=== PATIENT | female | born 1950 | race Caucasian/White ===

== ENCOUNTER → 2024-07-24 11:23 | Outpatient (REF) | payer OTHER, SELFPAY | LOC: WDC 11:23 | PROVIDERS: ATTENDING PHYSICIAN Family Medicine | DX: Z12.31 Encounter for screening mammogram for malignant neoplasm of breast (principal) | CPT/HCPCS: 77063; 77067 ==

== ENCOUNTER 2024-12-11 17:59 | Emergency (ER) | payer OTHER, SELFPAY ==
[2024-12-11 18:18] VITALS: BP 153/115
[2024-12-11 18:47] LABS: % Basophils 0.5 % (0-2); % Eosinophils 0.3 % (0-6); % Immature Granulocytes 0.3 % (0-0.5); % Lymphocytes 12.2 % (20.5-51.1); % Monocytes 8.5 % (1.7-9.3); % Neutrophils 78.2 % (42.2-75.2); Absolute Lymphocytes 0.9 10^3/uL (1.2-3.4); Absolute Monocytes 0.6 10^3/uL (0.1-0.6); Absolute Neutrophils 5.7 10^3/uL (1.4-6.5); Hemoglobin 14.5 g/dL (12.0-16.0); Mean Corp Hgb Conc. 34.5 g/dL (33.0-37.0); Mean Corpuscular Hgb 29.2 pg (27.0-31.0); Mean Corpuscular Volume 84.5 fL (81.0-99.0); Mean Platelet Volume 8.9 fL (7.4-10.4); Nucleated Red Blood Cells % 0 %; Platelet Count 374 10^3/uL (130-400); Red Blood Cell Count 4.97 10^6/uL (4.20-5.40); Red Cell Dist. Width 12.3 % (11.5-14.5); White Blood Cell Count 7.3 10^3/uL (4.8-10.8)
[2024-12-11 18:58] LABS: ALT (SGPT) 18 U/L (0-35); AST (SGOT) 19 U/L (14-36); Albumin 4.1 g/dl (3.5-5.0); Alkaline Phosphatase 78 U/L (38-126); Blood Urea Nitrogen 10 mg/dl (7-17); Calcium 9.4 mg/dl (8.4-10.2); Carbon Dioxide 23 mmol/L (22-30); Chloride 107 mmol/L (98-107); Glucose 135 mg/dl (70-99); Lipase 79 U/L (23-300); Potassium 3.6 mmol/L (3.5-5.1); Sodium 140 mmol/L (135-145); Total Bilirubin 0.6 mg/dl (0.2-1.3); Total Protein 7.2 g/dl (6.3-8.2); eGFR > 60.00
[2024-12-11 19:09] LABS: Troponin I < 0.012 ng/ml
[2024-12-11] MEDS: PROTONIX IV 40 MG IV (19:46)
[2024-12-11] MEDS: NSS 1000 IV (19:46)
[2024-12-11] MEDS: ZOFRAN 4 MG IV (19:46)
[2024-12-11 19:48] VITALS: BP 150/78
--- NOTE | 2024-12-11 19:53 | ED.GENMED ---
History of Present Illness
General
Chief Complaint: Abdominal Symptoms
Time Seen by Provider: 12/11/24 19:06
History of Present Illness
History of Present Illness:
74-year-old female with history of anxiety, depression, GERD, IBS presenting to the emergency department for abdominal discomfort and nausea. Patient reports that last week she was in [place], believed that she pulled a muscle in her left back
after water aerobics. She was incidentally found to have a pulmonary infarct and a PE. She was admitted, treated with heparin drip and discharged on Eliquis. She since came home and notes that she has severe IBS and has been struggling with
eating and drinking. She notes that she has been having nausea, as well as anxiety. She has intermittently been compliant with Eliquis and notes that she is still having some dyspnea. She reports some upper abdominal discomfort. Denies
significant chest pain. Denies fever. Also reports constipation, last bowel movement was 4 days ago, intermittently taking Dulcolax. She has appointment coming up with hematology on Sunday. Denies any additional medical complaints
Past History
Past History
ED Past Medical History: GERD, Hypercholesterolemia, Psychiatric (Bipolar disorder, depression), Other (Reflex sympathetic dystrophy right wrist) and Other (kidney stones )
ED Past Surgical History: Gynecological (Hysterectomy) and Orthopedic (Right wrist surgery)
Social History
Tobacco: Non-smoker
Alcohol: None
Personal:
Living: with family
Employment: Employed
Family History
Family History: Diabetes
Phy Exam
Physical Exam
Physical Exam:
General: Well-appearing, no clinical signs of dehydration, nontoxic and in no acute distress
HEENT: protecting airway
Neck: appears supple
CV: Normal heart rate, regular rhythm
Resp: No accessory muscle use, no increased work of breathing, lungs clear to auscultation bilaterally
Abd: Soft and non-distended, no tenderness to palpation
Extremities: No deformities, no swelling
Neuro: alert, no focal neurologic deficit
: deferred
Rectal: deferred
Psych: Normal affect
Skin: Intact
Course
Orders/Labs/Results
Orders:
Orders
12/11/24 18:24
Electrocardiogram (*1) Urgent
Reason for Study: Shortness of Breath
12/11/24 18:25
EKG- Treatment ONCE
12/11/24 18:39
Complete Blood Count/With Diff Urgent
Comprehensive Metabolic Panel Urgent
Lipase Urgent
Troponin I Urgent
12/11/24 19:40
0.9% Sodium Chloride 1000 ml [Nss] 1,000 ml IV BOLUS
Ondansetron Injectable [Zofran] 4 mg IV NOW STA
Pantoprazole [Protonix IV] 40 mg IV NOW STA
12/11/24 19:41
Apixaban [Eliquis] 10 mg PO ONCE ONE
Abnormal Lab Results
12/11/24
18:39
Absolute Lymphs (auto) 0.9 L 10^3/uL
(1.2-3.4)
Neutrophils % 78.2 H %
(42.2-75.2)
Lymphocytes % 12.2 L %
(20.5-51.1)
Glucose 135 H mg/dl
(70-99)
12/11/24 18:39
12/11/24 18:39
Vital Signs
Initial and Last Documented VS:
Initial Vital Signs
Temp Pulse Resp BP Pulse Ox
98.4 F 118 18 153/115 97
12/11/24 18:18 12/11/24 18:18 12/11/24 18:18 12/11/24 18:18 12/11/24 18:18
Last Documented Vital Signs
Temp Pulse Resp BP Pulse Ox
98.4 F 83 16 150/78 95
12/11/24 18:18 12/11/24 19:48 12/11/24 20:00 12/11/24 19:48 12/11/24 19:48
MDM/Problems Addressed
MDM/Problems Addressed:
74-year-old female with history of anxiety, depression, GERD, IBS presenting to the emergency department for nausea and difficulty tolerating p.o. after recent diagnosis of PE. Vital signs on arrival significant for mild hypertension.
On exam, patient is resting comfortably, no acute distress or discomfort. Patient is very anxious on appearance. Patient question regarding her symptoms, notes that she has been unable to tolerate her Eliquis secondary to nausea. She reports that
she has not been vomiting, however is more of a discomfort. Explained at length the importance of compliance with Eliquis given her recent diagnosis of PE. Patient arrives with paperwork, can CT finding of PE with pulmonary infarct. Patient was
discharged on a starter pack, supposed to take 10 mg twice daily for the first 7 days and 5 mg twice daily every day after. She reports that she has not had any Eliquis today. Patient explains that she feels more anxious than anything and feels
that her anxiety is driving her symptoms. Do suspect component of GERD/peptic ulcer disease, as well as her IBS contributing to constipation. Abdomen is soft and nondistended with no focal tenderness on palpation obstruction or acute pathology.
Will treat patient with IV fluids, pantoprazole and Zofran. Will administer patient's Eliquis today. Otherwise do not feel that patient requires repeat imaging of her chest given her normal vital signs, no hypoxia, no tachycardia. Patient also
had screening laboratory analysis, undetectable troponin, without present concern for right heart strain. Again, will treat patient's symptoms with plan for discharge and supportive therapy.
21:20 -patient is feeling much better, again plan for discharge
*EKG
Interpreted by ED Provider?: Yes
EKG Intrepretation Date: 12/11/24
EKG Intrepretation Time: 19:56
Interpretation: normal
Heart Rate: 95
Rate: normal
Rhythm: sinus
[place]: normal axis
Interval: normal interval
QRS Pattern: normal QRS
Ischemia: no ischemia
*Critical Care Note
Total Time (30-74mins, 75-104mins- exclusive of procedures): Not Applicable
ED Attending Note
-
Portions of this chart may have been created with voice recognition software.� Occasional wrong word or��sound alike� substitutions may have occurred due to the inherent limitations of voice recognition software.
Discharge Plan
Departure
Patient with high blood pressure during this ER visit?: No
Condition: Good
Discharge Problem:
Gastritis
Prescriptions:
No Action
gabapentin 600 MG tablet
1,200 mg PO HS
lithium carbonate 300 MG tablet extended release
300 mg PO HS
lamotrigine 25 MG tablet, chewable dispersible
50 mg PO HS
pravastatin 20 MG tablet
20 mg PO HS
escitalopram oxalate 10 MG tablet
10 mg PO HS
calcium carbonate-vitamin D3 [Oyster Shell Calcium-Vit D3] 500 MG tablet
1 tab PO DAILY
inulin-chromium picolinate [Fiber Gummies (with chromium)] 1 EACH tablet,chewable
3 ea PO DAILY
multivitamin with folic acid [Tab-A-[place]] 1 TABLET tablet
1 tab PO DAILY
hyoscyamine sulfate [Levsin/SL] 0.125 MG tablet, sublingual
0.125 mg sublingual DAILYPRN PRN (Reason: IBS)
lidocaine HCl [Lidocaine Viscous] 90 ML solution
90 ml PO Q6HPRN PRN (Reason: pain ) Qty: 1 0RF
Rx Instructions:
10 ml orally swish and spit every 6 hrs
Referrals:
Barbara Caldwell MD [Family Provider] -
Interventions
Interventions:
*Risk Screen - Suicide Last Done: 12/11/24 18:18
*General Assessment Last Done: 12/11/24 18:18
*Neglect/Abuse Screening Last Done: 12/11/24 18:18
AM-Emjnsy-Freadktwnx Assessment Last Done: 12/11/24 18:41
ED- Cardiac Assessment Last Done: 12/11/24 18:41
ED- Pulmonary Assessment Last Done: 12/11/24 18:41
Discharge Date and Time
Print Language: ROMANIAN
[2024-12-11 20:00] VITALS: BP 166/72
[2024-12-11] MEDS: ELIQUIS 10 MG PO (20:13)
[2024-12-11 21:10] VITALS: BP 153/75
== END 2024-12-11 21:48 | disposition home or self-care (01) ==
LOC: EMR 17:59
PROVIDERS: Emergency Medicine; EMERGENCY PHYSICIAN Student in an Organized Health Care Education/Training Program; FAMILY PHYSICIAN Family Medicine
DX: K29.70 Gastritis, unspecified, without bleeding (principal); F41.9 Anxiety disorder, unspecified; F31.9 Bipolar disorder, unspecified; E78.00 Pure hypercholesterolemia, unspecified; I10 Essential (primary) hypertension; Z79.01 Long term (current) use of anticoagulants; Z83.3 Family history of diabetes mellitus; Z87.442 Personal history of urinary calculi; Z90.710 Acquired absence of both cervix and uterus
CPT/HCPCS: 99283; 96374; 96375; 96361; 80053; 83690; 84484; 85025; 93005

== ENCOUNTER 2024-12-14 12:15 | Emergency (ER) | payer OTHER, SELFPAY ==
[2024-12-14 12:18] VITALS: BP 170/110
[2024-12-14 12:46] LABS: % Basophils 0.8 % (0-2); % Eosinophils 0.3 % (0-6); % Immature Granulocytes 0.3 % (0-0.5); % Lymphocytes 12.2 % (20.5-51.1); % Monocytes 9.1 % (1.7-9.3); % Neutrophils 77.3 % (42.2-75.2); Absolute Basophils 0.1 10^3/uL (0-0.2); Absolute Lymphocytes 0.8 10^3/uL (1.2-3.4); Absolute Monocytes 0.6 10^3/uL (0.1-0.6); Absolute Neutrophils 4.9 10^3/uL (1.4-6.5); Hematocrit 42.5 % (37.0-47.0); Hemoglobin 14.8 g/dL (12.0-16.0); Mean Corp Hgb Conc. 34.8 g/dL (33.0-37.0); Mean Corpuscular Hgb 29.5 pg (27.0-31.0); Mean Corpuscular Volume 84.8 fL (81.0-99.0); Mean Platelet Volume 9.3 fL (7.4-10.4); Nucleated Red Blood Cells % 0 %; Platelet Count 398 10^3/uL (130-400); Red Blood Cell Count 5.01 10^6/uL (4.20-5.40); Red Cell Dist. Width 12.5 % (11.5-14.5); White Blood Cell Count 6.4 10^3/uL (4.8-10.8)
[2024-12-14 12:57] LABS: ALT (SGPT) 19 U/L (0-35); AST (SGOT) 19 U/L (14-36); Alkaline Phosphatase 71 U/L (38-126); Blood Urea Nitrogen 11 mg/dl (7-17); Carbon Dioxide 26 mmol/L (22-30); Chloride 105 mmol/L (98-107); Glucose 166 mg/dl (70-99); Potassium 3.7 mmol/L (3.5-5.1); Sodium 140 mmol/L (135-145); Total Bilirubin 0.5 mg/dl (0.2-1.3); Total Protein 7.1 g/dl (6.3-8.2); eGFR > 60.00
[2024-12-14 13:09] LABS: Troponin I < 0.012 ng/ml
[2024-12-14 13:57] VITALS: BMI 21.9
[2024-12-14 14:00] VITALS: BP 161/90
--- NOTE | 2024-12-14 14:14 | ED.GENMED ---
Addendum entered and electronically signed by Dipak Ramos MD 12/14/24 17:37:
The diagnosis and documentation as such is from the wrong chart.
Patient's discharge diagnosis is upper back pain. Recent pulmonary infarct/pulmonary emboli
Pleuritic upper back pain.
Gastritis
Incidental liver lesion and renal lesion
Medical decision making. CT scans are stable. No acute pulmonary emboli. In no distress. Cardiac testing within normal limits. Discharged to follow-up. Patient was plugged into the GI follow-up issue.
Original Note:
History of Present Illness
General
Chief Complaint: Back Pain
Source: patient and spouse
Exam Limitations: none
Time Seen by Provider: 12/14/24 14:04
History of Present Illness
History of Present Illness:
Patient presents with a recurrence of upper back pain somewhat pleuritic in nature with mild shortness of breath. Diagnosed with a pulmonary emboli/infarct in [place]. Has been on Eliquis. Initially there was compliance issues however has been
faithful the last week or so and has been on double dose. No fever no cough no nausea or vomiting. However has also had ongoing epigastric pain. No bloody stools tarry stools or other complaints
Past History
Past History
ED Past Medical History: GERD, Hypercholesterolemia, Psychiatric (Bipolar disorder, depression), Other (Reflex sympathetic dystrophy right wrist), Other (Pulmonary emboli/symptom) and Other (kidney stones )
ED Past Surgical History: Gynecological (Hysterectomy) and Orthopedic (Right wrist surgery)
Social History
Tobacco: Non-smoker
Alcohol: None
Personal:
Living: with family
Employment: Employed
Family History
Family History: Diabetes
Review of Systems
Review of Systems
All Other Systems: Not applicable
Constitutional: Denies fever
Respiratory: Denies hemoptysis
ABD/GI: Denies bloody stools or black stools
Phy Exam
Physical Exam
Physical Exam:
GENERAL: Alert and oriented in no apparent distress
EYE: Orbits normal.
NECK: Supple, no significant adenopathy.
ENT: Pharynx without erythema
CARDIAC: Regular rate and rhythm without any obvious murmurs.
LUNGS: Clear breath sounds,normal
ABDOMEN: Soft, bowel sounds present. Minimal epigastric tenderness. No rebound or guarding no mass or hernia.
NEUROLOGICAL: Alert and oriented , grossly non-focal
SKIN: Warm and dry, no rash or lesion, no discoloration, skin intact.
MUSCULOSKELETAL: No edema,no deformity.Good color
PSYCH: Normal and appropriate interaction.
Course
Orders/Labs/Results
Orders:
Orders
12/14/24 12:23
Electrocardiogram (*1) Urgent
Reason for Study: Chest Pain
EKG- Treatment ONCE
12/14/24 12:32
Complete Blood Count/With Diff Urgent
Comprehensive Metabolic Panel Urgent
Troponin I Urgent
12/14/24 14:15
CT Chest PE Study Urgent
Comment:
Reason For Exam: Known PE. Increased left upper back pain.
12/14/24 14:16
Add On- LAB Urgent
Tests Added?: lipase
CT Abd/Pel (IV only)-DH only Urgent
Comment:
Reason For Exam: Ongoing progressive epigastric pain
Abnormal Lab Results
12/14/24
12:32
Absolute Lymphs (auto) 0.8 L 10^3/uL
(1.2-3.4)
Neutrophils % 77.3 H %
(42.2-75.2)
Lymphocytes % 12.2 L %
(20.5-51.1)
Glucose 166 H mg/dl
(70-99)
12/14/24 12:32
12/14/24 12:32
Vital Signs
Initial and Last Documented VS:
Initial Vital Signs
Temp Pulse Resp BP Pulse Ox
97.8 F 120 18 170/110 97
12/14/24 12:18 12/14/24 12:18 12/14/24 12:18 12/14/24 12:18 12/14/24 12:18
Last Documented Vital Signs
Temp Pulse Resp BP Pulse Ox
97.8 F 85 17 161/90 96
12/14/24 12:18 12/14/24 14:00 12/14/24 14:00 12/14/24 14:00 12/14/24 14:00
MDM/Problems Addressed
Differential Diagnosis Includes:
Patient complaining of 2 issues recurrence of upper back pain at the same location and symptomatic complex consistent with her recent PE/pulmonary infarct. May be all post infarct pleurisy however need to reevaluate CT scan for any changes. As for
the epigastric convinced this is directly related. Clinically seems to be a gastritis ulcer issue. She clinically has a nonsurgical abdomen. We will scan her abdomen and pelvis also. LFTs are normal. Lipase added.
*Radiology
Radiology exam reviewed: radiology read reviewed (Negative CT for acute changes)
*Pulse Oximetry
Patient hypoxic: no
*EKG
Interpreted by ED Provider?: Yes
Interpretation: normal
Comparison EKG: no changes
Heart Rate: 94
Rate: normal
Rhythm: sinus
[place]: normal axis
Interval: normal interval
QRS Pattern: normal QRS
Ischemia: no ischemia
*Critical Care Note
Total Time (30-74mins, 75-104mins- exclusive of procedures): Not Applicable
Data Reviewed
Review of Other/Old Records Reveals: Labs, Records, Radiology Studies and Testing
ED Attending Note
-
Portions of this chart may have been created with voice recognition software.� Occasional wrong word or��sound alike� substitutions may have occurred due to the inherent limitations of voice recognition software.
Discharge Plan
Departure
Patient Disposition: Home (Routine Discharge)
Date of Disposition: 12/14/24
Time of Disposition: 14:21
Patient with high blood pressure during this ER visit?: Yes
Discharge Problem:
Head injury/anticoagulated, posterior ear laceration
Instructions: Minor Head Injury, Adult ED, Laceration Repair With Glue ED, BLOOD PRESSURE
Prescriptions:
No Action
gabapentin 600 MG tablet
1,200 mg PO HS
lithium carbonate 300 MG tablet extended release
300 mg PO HS
lamotrigine 25 MG tablet, chewable dispersible
50 mg PO HS
pravastatin 20 MG tablet
20 mg PO HS
escitalopram oxalate 10 MG tablet
10 mg PO HS
calcium carbonate-vitamin D3 [Oyster Shell Calcium-Vit D3] 500 MG tablet
1 tab PO DAILY
inulin-chromium picolinate [Fiber Gummies (with chromium)] 1 EACH tablet,chewable
3 ea PO DAILY
multivitamin with folic acid [Tab-A-[place]] 1 TABLET tablet
1 tab PO DAILY
hyoscyamine sulfate [Levsin/SL] 0.125 MG tablet, sublingual
0.125 mg sublingual DAILYPRN PRN (Reason: IBS)
lidocaine HCl [Lidocaine Viscous] 90 ML solution
90 ml PO Q6HPRN PRN (Reason: pain ) Qty: 1 0RF
Rx Instructions:
10 ml orally swish and spit every 6 hrs
ondansetron 4 mg Tablet,Disintegrating
4 mg PO TIDPRN PRN (Reason: nausea/vomiting) Qty: 9 0RF
alum-mag hydroxide-simeth [Maalox Advanced] 200-200-20 mg/5 mL suspension
5 ml PO ONCE PRN (Reason: constipation) Qty: 3000 0RF
Referrals:
UNKNOWN - PT DOES,NOT KNOW [Family Provider] - Follow up in 2-3 days
Interventions
Interventions:
*Risk Screen - Suicide Last Done: 12/14/24 12:18
*General Assessment Last Done: 12/14/24 12:18
*ED- Fall Risk Assessment Last Done: 12/14/24 13:59
*ED COVID-19 Vaccine History Last Done: 12/14/24 12:18
ED-Musculoskeletal Assessment Last Done: 12/14/24 13:59
Discharge Date and Time
Print Language: SERBIAN
[2024-12-14 15:12] VITALS: BP 165/74
[2024-12-14 15:24] LABS: Lipase 172 U/L (23-300)
[2024-12-14 16:00] VITALS: BP 161/79
--- NOTE | 2024-12-14 16:36 | ED.GENMED ---
History of Present Illness
General
Chief Complaint: Back Pain
Time Seen by Provider: 12/14/24 14:04
Past History
Past History
ED Past Medical History: GERD, Hypercholesterolemia, Psychiatric (Bipolar disorder, depression), Other (Reflex sympathetic dystrophy right wrist), Other (Pulmonary emboli/symptom) and Other (kidney stones )
ED Past Surgical History: Gynecological (Hysterectomy) and Orthopedic (Right wrist surgery)
Social History
Tobacco: Non-smoker
Alcohol: None
Personal:
Living: with family
Employment: Employed
Family History
Family History: Diabetes
Course
Orders/Labs/Results
Orders:
Orders
12/14/24 12:23
Electrocardiogram (*1) Urgent
Reason for Study: Chest Pain
EKG- Treatment ONCE
12/14/24 12:32
Complete Blood Count/With Diff Urgent
Comprehensive Metabolic Panel Urgent
Lipase Urgent
Comment: ADD ON
Troponin I Urgent
12/14/24 14:15
CT Chest PE Study Urgent
Comment:
Reason For Exam: Known PE. Increased left upper back pain.
12/14/24 14:16
Add On- LAB Urgent
Tests Added?: lipase
CT Abd/Pel (IV only)-DH only Urgent
Comment:
Reason For Exam: Ongoing progressive epigastric pain
Abnormal Lab Results
12/14/24
12:32
Absolute Lymphs (auto) 0.8 L 10^3/uL
(1.2-3.4)
Neutrophils % 77.3 H %
(42.2-75.2)
Lymphocytes % 12.2 L %
(20.5-51.1)
Glucose 166 H mg/dl
(70-99)
12/14/24 12:32
12/14/24 12:32
Vital Signs
Initial and Last Documented VS:
Initial Vital Signs
Temp Pulse Resp BP Pulse Ox
97.8 F 120 18 170/110 97
12/14/24 12:18 12/14/24 12:18 12/14/24 12:18 12/14/24 12:18 12/14/24 12:18
Last Documented Vital Signs
Temp Pulse Resp BP Pulse Ox
97.8 F 78 18 165/74 97
12/14/24 12:18 12/14/24 15:15 12/14/24 15:15 12/14/24 15:12 12/14/24 15:15
*Radiology
Radiology exam reviewed: radiology read reviewed (No acute findings. Liver lesion. Infiltrate left base. Likely pulmonary infarct)
*EKG
Interpreted by ED Provider?: Yes
Interpretation: normal
Comparison EKG: no changes
Heart Rate: 94
Rate: normal
Rhythm: sinus
[place]: normal axis
Interval: normal interval
QRS Pattern: normal QRS
Ischemia: no ischemia
Update Note
Update Note:
Copy of CT report given to patient for follow-up. No pulmonary emboli currently. Clinical not cardiac. There is an infiltrate that has been ongoing in the left base. Likely infarct. Not describing any infectious symptoms no fever cough sputum.
And this has been stable there for 3 weeks. Will also follow-up the MRI. GI follow-up for her gastritis like symptoms
ED Attending Note
-
Portions of this chart may have been created with voice recognition software.� Occasional wrong word or��sound alike� substitutions may have occurred due to the inherent limitations of voice recognition software.
Discharge Plan
Departure
Patient Disposition: Home (Routine Discharge)
Date of Disposition: 12/14/24
Time of Disposition: 16:40
Patient with high blood pressure during this ER visit?: Yes
Discharge Problem:
Right upper back pain, Possible post infarct pleurisy, Gastritis, Liver lesion, Small renal lesion
Instructions: Upper Back Pain (DC), Gastritis - Discharge instructions, BLOOD PRESSURE
Prescriptions:
No Action
gabapentin 600 MG tablet
1,200 mg PO HS
lithium carbonate 300 MG tablet extended release
300 mg PO HS
lamotrigine 25 MG tablet, chewable dispersible
50 mg PO HS
pravastatin 20 MG tablet
20 mg PO HS
escitalopram oxalate 10 MG tablet
10 mg PO HS
calcium carbonate-vitamin D3 [Oyster Shell Calcium-Vit D3] 500 MG tablet
1 tab PO DAILY
inulin-chromium picolinate [Fiber Gummies (with chromium)] 1 EACH tablet,chewable
3 ea PO DAILY
multivitamin with folic acid [Tab-A-[place]] 1 TABLET tablet
1 tab PO DAILY
hyoscyamine sulfate [Levsin/SL] 0.125 MG tablet, sublingual
0.125 mg sublingual DAILYPRN PRN (Reason: IBS)
lidocaine HCl [Lidocaine Viscous] 90 ML solution
90 ml PO Q6HPRN PRN (Reason: pain ) Qty: 1 0RF
Rx Instructions:
10 ml orally swish and spit every 6 hrs
ondansetron 4 mg Tablet,Disintegrating
4 mg PO TIDPRN PRN (Reason: nausea/vomiting) Qty: 9 0RF
alum-mag hydroxide-simeth [Maalox Advanced] 200-200-20 mg/5 mL suspension
5 ml PO ONCE PRN (Reason: constipation) Qty: 3000 0RF
Referrals:
UNKNOWN - PT DOES,NOT KNOW [Family Provider] - Follow up in 2-3 days
Coni Coleman, DO [Active] -
Activity Restrictions/Additional Instructions:
Follow-up with oncology
Tylenol only for pain since you are on the blood thinners
Take a Pepcid a day
The gastrointestinal group should call you tomorrow morning
Return with any infectious symptoms fever cough shortness of breath etc.
Make sure you get a follow-up MRI of your liver and to consider follow-up ultrasound of your kidney at some point in the future
Interventions
Interventions:
*Risk Screen - Suicide Last Done: 12/14/24 12:18
*General Assessment Last Done: 12/14/24 12:18
*Neglect/Abuse Screening Last Done: 12/14/24 15:22
*ED- Fall Risk Assessment Last Done: 12/14/24 13:59
*ED COVID-19 Vaccine History Last Done: 12/14/24 12:18
ED-Musculoskeletal Assessment Last Done: 12/14/24 13:59
Discharge Date and Time
Print Language: [place]IZ[place]
[2024-12-14 17:00] VITALS: BP 163/78
== END 2024-12-14 17:20 | disposition home or self-care (01) ==
LOC: EMR 12:15
PROVIDERS: Emergency Medicine; EMERGENCY PHYSICIAN Emergency Medicine
DX: M54.89 Other dorsalgia (principal); K29.70 Gastritis, unspecified, without bleeding; K76.9 Liver disease, unspecified; N28.9 Disorder of kidney and ureter, unspecified; R06.02 Shortness of breath; E78.00 Pure hypercholesterolemia, unspecified; Z86.711 Personal history of pulmonary embolism; Z79.01 Long term (current) use of anticoagulants
CPT/HCPCS: 99284; 71275; 74177; 80053; 83690; 84484; 85025; 93005; Q9967

== ENCOUNTER → 2024-12-22 09:21 | Outpatient (REF) | payer OTHER, SELFPAY | LOC: RAD 09:21 | PROVIDERS: ATTENDING PHYSICIAN Internal Medicine Gastroenterology; FAMILY PHYSICIAN Family Medicine | DX: R10.13 Epigastric pain (principal) | CPT/HCPCS: 74018 ==

== ENCOUNTER → 2024-12-23 08:49 | Outpatient (REF) | payer OTHER, SELFPAY | LOC: HWRAD 08:49 | PROVIDERS: ATTENDING PHYSICIAN Internal Medicine Gastroenterology; FAMILY PHYSICIAN Family Medicine; REFERRING PHYSICIAN Internal Medicine Hematology & Oncology | DX: R10.13 Epigastric pain (principal) | CPT/HCPCS: 76700 ==

== ENCOUNTER 2025-01-03 03:10 | Emergency (ER) | payer OTHER, SELFPAY ==
[2025-01-03 03:20] VITALS: BP 152/101
[2025-01-03 03:21] VITALS: BP 152/101
[2025-01-03] MEDS: ZOFRAN 4 MG IV (03:41)
[2025-01-03 03:42] LABS: % Basophils 0.4 % (0-2); % Eosinophils 1.2 % (0-6); % Immature Granulocytes 0.3 % (0-0.5); % Lymphocytes 14.5 % (20.5-51.1); % Monocytes 4.5 % (1.7-9.3); % Neutrophils 79.1 % (42.2-75.2); Absolute Eosinophils 0.1 10^3/uL (0-0.7); Absolute Lymphocytes 1.6 10^3/uL (1.2-3.4); Absolute Monocytes 0.5 10^3/uL (0.1-0.6); Absolute Neutrophils 8.6 10^3/uL (1.4-6.5); Hematocrit 51.6 % (37.0-47.0); Mean Corp Hgb Conc. 32.9 g/dL (33.0-37.0); Mean Corpuscular Hgb 29.2 pg (27.0-31.0); Mean Corpuscular Volume 88.7 fL (81.0-99.0); Mean Platelet Volume 9.5 fL (7.4-10.4); Nucleated Red Blood Cells % 0 %; Platelet Count 285 10^3/uL (130-400); Red Blood Cell Count 5.82 10^6/uL (4.20-5.40); Red Cell Dist. Width 13.2 % (11.5-14.5); White Blood Cell Count 10.9 10^3/uL (4.8-10.8)
[2025-01-03 03:54] LABS: ALT (SGPT) 18 U/L (0-35); AST (SGOT) 18 U/L (14-36); Albumin 4.2 g/dl (3.5-5.0); Alkaline Phosphatase 64 U/L (38-126); Blood Urea Nitrogen 12 mg/dl (7-17); Calcium 9.9 mg/dl (8.4-10.2); Carbon Dioxide 22 mmol/L (22-30); Chloride 111 mmol/L (98-107); Estimated Creatinine Clearance 67 ml/min; Glucose 198 mg/dl (70-99); Lipase 247 U/L (23-300); Potassium 3.9 mmol/L (3.5-5.1); Sodium 141 mmol/L (135-145); Total Bilirubin 0.6 mg/dl (0.2-1.3); eGFR > 60.00
--- NOTE | 2025-01-03 04:00 | ED.GENMED ---
History of Present Illness
General
Chief Complaint: Abdominal Symptoms
Source: patient and spouse
Time Seen by Provider: 01/03/25 03:36
History of Present Illness
History of Present Illness:
74-year-old female presents with lower abdominal pain that started yesterday. She was at home and was on the floor with severe pain and decided to come in for evaluation. She has a history of irritable bowel syndrome. States she did feel coming
on yesterday to a mild degree. She tried taking her medications but symptoms worsened through the night. On arrival however she did have a bowel movement states she feels more than 90% better. She states she feels stupid for coming in as she does
feel much improved. She did take a very small dose of MiraLAX at home. No melena or hematochezia. States she has had this several times in the past.
Past History
Past History
ED Past Medical History: GERD, Hypercholesterolemia, Psychiatric (Bipolar disorder, depression), Other (Reflex sympathetic dystrophy right wrist, irritable bowel syndrome, optical migraines) and Other (kidney stones )
ED Past Surgical History: Gynecological (Hysterectomy) and Orthopedic (Right wrist surgery)
Social History
Tobacco: Non-smoker
Alcohol: None
Personal:
Living: with family
Employment: Employed
Family History
Family History: Diabetes
Phy Exam
Physical Exam
Physical Exam:
CONSTITUTIONAL Patient alert and oriented to person, place and time. Well-appearing. Vital signs reviewed.
HEAD atraumatic, normocephalic.
EYES eyelids normal to inspection, Extraocular muscles intact, Conjunctiva normal, Sclera normal.
NECK normal range of motion, Trachea midline, no jugular venous distention.
RESPIRATORY CHEST No respiratory distress noted, Chest expansion equal
ABDOMEN abdomen nontender, Bowel sounds normal. No distention. Mild tenderness in the lower abdomen
BACK normal inspection, no obvious deformities
UPPER EXTREMITY range of motion normal, Motor strength normal, no cyanosis, no edema.
LOWER EXTREMITY range of motion normal, Motor strength normal, no cyanosis, no edema.
NEURO Speech normal, No focal motor deficits, Yesenia coma scale 15, Memory normal, Cranial Nerves intact to screening exam.
SKIN skin warm, dry, and normal in color.
Course
Orders/Labs/Results
Orders:
Orders
01/03/25 03:14
Electrocardiogram (*1) Urgent
Reason for Study: Abdominal Pain
IV Insert/Care/Rem.- Treatment PRN
Urinalysis Reflex To Culture Urgent
Date Specimen was Collected: 01/03/25
Time Specimen was Collected: 03:14
01/03/25 03:35
Complete Blood Count/With Diff Urgent
Comprehensive Metabolic Panel Urgent
Lipase Urgent
01/03/25 03:38
Ondansetron Injectable [Zofran] 4 mg .ROUTE .STK-MED ONE
01/03/25 03:41
Ondansetron Injectable [Zofran] 4 mg IV NOW STA
Abnormal Lab Results
01/03/25
03:35
WBC 10.9 H 10^3/uL
(4.8-10.8)
RBC 5.82 H 10^6/uL
(4.20-5.40)
Hgb 17.0 H g/dL
(12.0-16.0)
Hct 51.6 H %
(37.0-47.0)
MCHC 32.9 L g/dL
(33.0-37.0)
Absolute Neuts (auto) 8.6 H 10^3/uL
(1.4-6.5)
Neutrophils % 79.1 H %
(42.2-75.2)
Lymphocytes % 14.5 L %
(20.5-51.1)
Chloride 111 H mmol/L
(98-107)
Glucose 198 H mg/dl
(70-99)
01/03/25 03:35
01/03/25 03:35
Vital Signs
Initial and Last Documented VS:
Initial Vital Signs
Pulse Resp
120 19
01/03/25 03:19 01/03/25 03:19
Last Documented Vital Signs
Temp Pulse Resp BP Pulse Ox
97.5 F 107 20 124/94 98
01/03/25 03:20 01/03/25 04:15 01/03/25 04:15 01/03/25 04:15 01/03/25 04:44
MDM/Problems Addressed
Differential Diagnosis Includes:
Constipation, colitis, stercoral colitis, diverticulitis, AAA, irritable bowel syndrome
MDM/Problems Addressed:
Irritable bowel syndrome, constipation
*Pulse Oximetry
Patient hypoxic: no
*Critical Care Note
Total Time (30-74mins, 75-104mins- exclusive of procedures): Not Applicable
Data Reviewed
Source: patient and spouse (Spouse states she has been taking her Eliquis and Levsin)
Further Testing Considered But Not Given:
Consider CT but patient feels much improved
Patient Management
Escalation/DeEscalation of care consider admission/obs:
Patient appears well and feels much improved. States she wants to go home and feels stupid for coming. I think this is reasonable. Labs grossly reassuring.
ED Attending Note
-
Portions of this chart may have been created with voice recognition software.� Occasional wrong word or��sound alike� substitutions may have occurred due to the inherent limitations of voice recognition software.
Discharge Plan
Departure
Patient Disposition: Home (Routine Discharge)
Date of Disposition: 01/03/25
Time of Disposition: 04:00
Patient with high blood pressure during this ER visit?: Yes
Discharge Problem:
Abdominal pain, Irritable bowel syndrome
Instructions: Abdominal Pain, BLOOD PRESSURE
Prescriptions:
No Action
lithium carbonate 300 MG tablet extended release
300 mg PO HS
multivitamin with folic acid [Tab-A-[place]] 1 TABLET tablet
1 tab PO DAILY
hyoscyamine sulfate [Levsin/SL] 0.125 MG tablet, sublingual
0.125 mg sublingual DAILYPRN PRN (Reason: IBS)
ondansetron 4 mg Tablet,Disintegrating
4 mg PO TIDPRN PRN (Reason: nausea/vomiting) Qty: 9 0RF
polyethylene glycol 3350 [Miralax] 17 gram Powder In Packet
17 g PO DAILY PRN (Reason: .)
lorazepam [Ativan] 0.5 mg Tablet
0.5 mg PO Q6H PRN (Reason: Reduction Of Transepidermal Water Loss)
ondansetron [Zofran ODT] 4 mg Tablet,Disintegrating
4 mg PO Q6H PRN (Reason: nausea)
Prolia 60 mg/mL Syringe
1 mg SC [id number]
Eliquis 5 mg Tablet
5 mg PO BID
Referrals:
UNKNOWN - PT DOES,NOT KNOW [Unknown Provider] -
Activity Restrictions/Additional Instructions:
Please follow-up with gastroenterology as discussed. Continue use of MiraLAX as needed. Return immediately for intractable pain, intractable vomiting, bloody stool or any other concerns.
Interventions
Interventions:
*Risk Screen - Suicide Last Done: 01/03/25 03:20
*General Assessment Last Done: 01/03/25 03:20
*Neglect/Abuse Screening Last Done: 01/03/25 03:20
*ED- Fall Risk Assessment Last Done: 01/03/25 03:20
*ED COVID-19 Vaccine History Last Done: 01/03/25 03:20
*Nursing Disposition Last Done: 01/03/25 04:44
ON-Klreku-Bgoaesmizg Assessment Last Done: 01/03/25 03:57
Discharge Date and Time
Discharge Date/Time: 01/03/25 04:45
Print Language: ICELANDIC
[2025-01-03 04:15] VITALS: BP 124/94
== END 2025-01-03 04:45 | disposition home or self-care (01) ==
LOC: EMR 03:10
PROVIDERS: EMERGENCY PHYSICIAN Emergency Medicine; FAMILY PHYSICIAN Family Medicine
DX: R10.30 Lower abdominal pain, unspecified (principal); K58.9 Irritable bowel syndrome, unspecified; K21.9 Gastro-esophageal reflux disease without esophagitis; E78.00 Pure hypercholesterolemia, unspecified; F31.9 Bipolar disorder, unspecified; Z83.3 Family history of diabetes mellitus; Z87.442 Personal history of urinary calculi; Z90.710 Acquired absence of both cervix and uterus
CPT/HCPCS: 99283; 96374; 80053; 83690; 85025

== ENCOUNTER → 2025-03-27 11:52 | Outpatient (REF) | payer OTHER, SELFPAY | LOC: MRI 11:52 | PROVIDERS: ATTENDING PHYSICIAN Internal Medicine Hematology & Oncology; FAMILY PHYSICIAN Family Medicine | DX: I26.09 Other pulmonary embolism with acute cor pulmonale (principal) | CPT/HCPCS: 74183; A9585 ==

== ENCOUNTER → 2025-07-28 14:02 | Outpatient (REF) | payer OTHER, SELFPAY | LOC: WDC 14:02 | PROVIDERS: ATTENDING PHYSICIAN Family Medicine | DX: Z12.31 Encounter for screening mammogram for malignant neoplasm of breast (principal); M81.0 Age-related osteoporosis without current pathological fracture; Z13.820 Encounter for screening for osteoporosis | CPT/HCPCS: 77063; 77067; 77080 ==